=== PATIENT | female | born 1980 | race American Indian/Alaskan Native ===

== ENCOUNTER 2021-09-05 12:55 | Outpatient (CLI) | payer SELFPAY ==
[2021-09-05 14:34] LABS: Bacteria,Urine 2+ /HPF (Negative); Bilirubin,Urine NEG (Negative); Blood,Urine NEG (Negative); Color,Urine Straw (Yellow); Protein,Urine <15 mg/dL mg/dL (Negative); Urobilinogen,Urine < 2.0 mg/dL (<2.0)
[2021-09-05] MEDS ORDERED: LACTATED RINGERS 1,000 ML IV ONE (15:00)
[2021-09-05] MEDS ORDERED: TERBUTALINE 1 MG/1 ML INJ ONE (17:25)
[2021-09-05 17:58] VITALS: BP 129/76
[2021-09-05] MEDS ORDERED: TERBUTALINE 1 MG/1 ML INJ SUB-Q ONE (18:22)
--- NOTE | 2021-09-05 18:23 | Ultrasound Report ---
ULTRASOUND OBSTETRIC INDICATION / CLINICAL INFORMATION: limited care. TECHNIQUE: Transabdominal. COMPARISON: None available. FINDINGS: There is a single intrauterine . Biparietal Diameter = 7.1 cm = 28.4 weeks.days Head Circumference = 25.9 cm = 28.1 weeks.days Abdominal Circumference = 24.6 cm = 28.6 weeks.days Femur Length = 5.6 cm = 29.3 weeks.days Average Ultrasound Age (AUA) = 28.5 weeks.days Heart Rate: 158 beats per minute. Estimated Weight in grams (if calculated): 1305 Estimated Weight Growth Percentile (if calculated): 5 Position: cephalic. Cervix: closed. Length in cm (if measured): Placenta: maternal right and free of the os. Amniotic Fluid Volume: normal Amniotic Fluid Index (ANNIE) in cm (if calculated): 9.9. Maternal Adnexa: No significant abnormality. IMPRESSION: 1. Single, living intrauterine with estimated sonographic age of 28.5 weeks.days 2. No significant sonographic abnormality. Signer Name: Clarence Baron MD Signed: 09/05/2021 6:18 PM Workstation Name: [id number]
== END 2021-09-05 19:00 | disposition home or self-care (01) ==
LOC: TRG 12:55 → APU 12:55 → TRG 19:00
PROVIDERS: ATTEND Obstetrics & Gynecology
DX: O26.892 Other specified pregnancy related conditions, second trimester (principal); R10.30 Lower abdominal pain, unspecified; Z3A.27 27 weeks gestation of pregnancy
CPT/HCPCS: 36415; 59025; 76816; 81001; 82731; 96360; 96361

== ENCOUNTER 2021-11-15 11:29 | Inpatient (IN) | payer SELFPAY ==
[2021-11-15] MEDS ORDERED: LACTATED RINGERS 1,000 ML ONE ×2 (14:03→21:52)
[2021-11-15 14:53] LABS: Hematocrit 38.5 % (30.3-42.9); Hemoglobin 12.4 gm/dl (10.1-14.3); Mean Corpuscular HGB Conc 32 % (30-34); Mean Corpuscular Volume 90 fl (79-97); Platelet Count 193 K/mm3 (140-440); Red Blood Count 4.28 M/mm3 (3.65-5.03); Red Cell Distribution Width 26.6 % (13.2-15.2)
[2021-11-15 15:26] LABS: Bacteria,Urine 2+ /HPF (Negative); Bilirubin,Urine NEG (Negative); Blood,Urine NEG (Negative); Color,Urine Yellow (Yellow); Protein,Urine <15 mg/dL mg/dL (Negative); Urobilinogen,Urine < 2.0 mg/dL (<2.0)
--- NOTE | 2021-11-15 18:37 | History and Physical Report ---
History of Present Illness Date of examination: 11/15/21 Date of admission: 11/15/21 Chief complaint: sent from [facility] for evaluation and was told she would deliver today History of present illness: at 39.0wks by LMP c/w U/S with care at [facility]. Pt c/o pain that is constant, denies leakage of fluid or vag bleed. Pt admits to movement. pt states that she had previous c/section in 2010 and then myomectomy in 2012 and both surgeries done in [place]. Past History Past Medical History: no pertinent history Past Surgical History: section, myomectomy Family/Genetic History: none Social history: no significant social history - Obstetrical History Expected Date of Delivery: 11/22/21 Actual Gestation: 39 Week(s) 0 Day(s) : 4 Hx # Term Pregnancies: 1 (c/s done due to fibroids, per pt report) Spontaneous Abortions: 2 Number of Living Children: 1 Medications and Allergies Allergies Allergy/AdvReac Type Severity Reaction Status Date / Time No Known Allergies Allergy Verified 09/05/21 14:13 Home Medications Medication Instructions Recorded Confirmed Last Taken Type Nitrofurantoin [place]/M-Cryst 100 mg PO Q12HR 7 Days #14 capsule 11/15/21 Unknown Rx [Macrobid CAP] Review of Systems All systems: negative (constant lower pelvic pain) - Vital Signs Vital signs: Vital Signs Pulse Pulse Ox 115 H 99 11/15/21 11:51 11/15/21 11:51 Temp Pulse Resp BP Pulse Ox 98.3 F 112 H 18 116/73 100 11/15/21 12:16 11/15/21 16:22 11/15/21 12:16 11/15/21 12:16 11/15/21 16:22 - Physical Exam Breasts: Positive: normal Cardiovascular: Regular rate Lungs: Positive: Normal air movement Abdomen: Positive: soft Uterus: Positive: enlarged (non-tender to fundus) - Obstetrical FHR: category 1 Uterine Contraction Monitor Mode: External Cervical Dilatation: 1 Cervical Effacement Percentage: 0 station: -3 Results Result Diagrams: 11/15/21 13:45 Abnormal lab results 11/15/21 Range/Units 13:45 RDW 26.6 H (13.2-15.2) % All other labs normal. Assessment and Plan IUP at 39.0wks with previous c/s then myomectomy and now having pain 1. admit for repeat section 2. Will proceed when OR is available 3. Continuous toco/FHR All questions encouraged and answered
[2021-11-15] MEDS ORDERED: LACTATED RINGERS 1,000 ML IV SCH (18:45)
--- NOTE | 2021-11-15 18:46 | Anesthesia Day of Surgery ---
Anesthesia Day of Surgery - Day of Surgery Patient Examined: Yes Patient H&P Reviewed: Yes Patient is NPO: Yes Beta Blockers: No Cardiac Clearance: No Pulmonary Clearance: No Wilmer's Test: N/A
--- NOTE | 2021-11-15 18:47 | Anesthesia Consultation ---
Anesthesia Consult and Med Hx Date of service: 11/15/21 - Airway Anesthetic Teeth Evaluation: Good ROM Head & Neck: Adequate Mental/Hyoid Distance: Adequate Mallampati Class: Class II Intubation Access Assessment: Probably Good - Pulmonary Exam CTA: Yes - Cardiac Exam Cardiac Exam: RRR - Pre-Operative Health Status ASA Pre-Surgery Classification: ASA2, Emergency Proposed Anesthetic Plan: Spinal Nerve Block: TAP - Pulmonary Hx Smoking: No Hx Asthma: No Hx Sleep Apnea: No - Cardiovascular System Hx Hypertension: No Hx Heart Attack/AMI: No Hx Angina: No - Central Nervous System Hx Seizures: No Hx Psychiatric Problems: No - Gastrointestinal Hx Gastroesophageal Reflux Disease: No - Endocrine Hx Renal Disease: No Hx Liver Disease: No Hx Insulin Dependent Diabetes: No Hx Non-Insulin Dependent Diabetes: No Hx Hypothyroidism: No Hx Hyperthyroidism: No - Hematic Hx Anemia: No Hx Sickle Cell Disease: No - Other Systems Hx Alcohol Use: No - Additional Comments Anesthesia Medical History Comments: previous c/s, myomectomy
[2021-11-15] MEDS ORDERED: KETOROLAC 30 MG/1 ML INJ ONE (18:50)
[2021-11-15] MEDS ORDERED: dexAMETHasone 20 MG/5 ML VIAL ONE (18:50)
[2021-11-15] MEDS ORDERED: BUPIVACAINE/PF (0.5%) 5 MG/1 ML 30 ML VIAL INFILTRATI ONE (18:50)
[2021-11-15] MEDS ORDERED: ONDANSETRON 4 MG/2 ML INJ ONE (18:50)
[2021-11-15] MEDS ORDERED: BICITRA ORAL LIQD 30ML PO ONE (19:00)
[2021-11-15] MEDS ORDERED: OXYTOCIN DRIP 30 UNITS/500 ML BAG IV SCH (19:00)
[2021-11-15] MEDS ORDERED: ceFAZolin/Water 2 GM/20 ML 2 GM/20 ML SYRINGE IV NR (19:00)
[2021-11-15] MEDS ORDERED: METOCLOPRAMIDE 10 MG/2 ML INJ IV ONE (19:00)
[2021-11-15] MEDS ORDERED: FAMOTIDINE 20 MG/2 ML INJ IV ONE (19:00)
[2021-11-15] MEDS ORDERED: fentaNYL 100 MCG/2 ML INJ IV ONE (20:05)
[2021-11-15] MEDS ORDERED: diphenhydrAMINE 50 MG/ML VIAL IV PRN (20:34)
[2021-11-15] MEDS ORDERED: ONDANSETRON 4 MG/2 ML INJ IV PRN (20:34)
[2021-11-15] MEDS ORDERED: LACTATED RINGERS 250 ML IV SOLN IV ONE (20:34)
[2021-11-15] MEDS ORDERED: NalbUPHINE 10 MG/1 ML INJ IV PRN (20:34)
[2021-11-15] MEDS ORDERED: ePHEDrine SULFATE 50 MG/1 ML INJ IV PRN (20:34)
[2021-11-15] MEDS ORDERED: NALOXONE 2 MG/2 ML INJ IV PRN (20:34)
--- NOTE | 2021-11-15 20:36 | Progress Note ---
Labor Epidural - Labor Epidural Start Time: 20:22 Stop Time: 20:30 Performed by:: MARIEL POOLE Procedure: Patient is requesting epidural for labor and pain. H&P, labs were reviewed. Patient IDed, H&P reviewed, all questions and concerns were answered, and consent was signed. Timeout was performed at bedside. Patient in sitting position. Sterile prep and drape was performed. 3ml of 1% lidocaine skin wheal at L[3]- L [4]. 17-gauge Tuohy epidural needle was advanced to loss of resistance with air technique 6cm. Negative CSF negative blood. Epidural catheter advanced to [12] centimeters. [negative] Aspiration [negative] test dose. Sterile dressing applied. Patient tolerated procedure.
[2021-11-15] MEDS ORDERED: TERBUTALINE 1 MG/1 ML INJ ONE (20:50)
[2021-11-15] MEDS ORDERED: WATER FOR IRRIG STERILE 1,500 ML BOTTLE IR ONE (21:00)
[2021-11-15] MEDS ORDERED: fentaNYL-BUPIV 2 MCG/ML-0.125% 200 MCG/100 ML BAG EPIDURAL SCH (21:00)
[2021-11-15] MEDS ORDERED: SODIUM CHLORIDE 0.9% IRR 1,500 ML BOTTLE IR ONE (21:00)
[2021-11-15] MEDS ORDERED: ceFAZolin/STERILE WATER 2 GM/20 ML SYRINGE IV ONE (21:02)
[2021-11-15] MEDS ORDERED: PHENYLEPHRINE/NS 1,000 MCG/10 ML SYRINGE (OR USE) IV ONE ×2 (21:19→22:06)
[2021-11-15] MEDS ORDERED: miSOPROStol 200 MCG TAB ONE ×2 (22:49)
[2021-11-15] MEDS ORDERED: miSOPROStol 200 MCG TAB VG ONE (22:58)
--- NOTE | 2021-11-15 23:18 | Event Note ---
Date: 11/15/21 pt with pain in triage and FHR category I. pelvic 9/100/-1 and pt pushing. Pt rushed to labor suite and repeat pelvic now 10/100/-1. Pt allowed to push but pt screaming in pain and not pushing effectively. pt offered epidural and same accepted and given. Nurse called me to the room following epidural with normal BP and FHR in the 60's. Brethine x1 dose given and consents obtained for emergent section and risks, benefits and alternatives already discussed while in triage. Dr. Velasco available and I asked him to assist. Ctx every 3mins. All questions encouraged and answered.
--- NOTE | 2021-11-15 23:41 | Procedure Note ---
OB Delivery Note - Delivery Date of Delivery: 11/15/21 Surgeon: CARLEE PAYAN Estimated blood loss: other (381cc) - Section Preop diagnosis: repeat , nonreassuring FHR tracing, other (h/o myomectomy and same still present and hematuria) Postop diagnosis: same (and multiple huge fibroids and minimal to absent lower right rectus muscle and hematuria) section procedure: repeat low transverse (and lysis of adhesions) Disposition: floor Complications: none Narrative: Date: 11/15/21 Surgeon: Carlee Payan MD Preop Dx: IUP at 39wks, H/O C/Section x1, H/O myomectomy, Leiomyoma, non- reassuring FHR at 10cm dilated/100/-1 station, hematuria Postop Dx: same and huge uterine fibroids Procedure : Repeat Low transverse section Anesthesia: Epidural Intake: 1250cc Output: 200cc EBL: 381cc After the risks, benefits and alternatives of procedure discussed, patient sign ed consents and was taken to the operating room. Pt was given epidural anesthesia. After same was adequate, patient was prepped and draped in the usual sterile fashion. Mark catheter in place and draining blood tinged urine. Pt was given prophylactic antibiotic per protocol and time out was done Pfannenstiel skin incision was made thru previous scar and taken sharply to the fascia and the incision extended using electrocautery. Superior edge of the fascia was grasped with maritza clamps and the rectus muscle using sharp dissection and also using electrocautery. Lower portion of the fascia also using electrocautery. Rectus muscle in the midline and of note the right side of rectus muscle was minimal laterally and absent centrally. The Peritoneal cavity entered sharply and dense adhesion noted to anterior serosa, thick back extending downwards. Same had to be and electrocautery used to separate same and the band extended to right side of a nterior abdominal wall and it was clear enough to allow placement of mic for delivery of baby. There was now good visualization of the bladder. The bladder flap was created sharply using metzenbaum scissors and bladder blade placed. Lower uterine segment then entered transversely and amniotic sac entered using allys clamps. Uterine incision extended using bandage scissors. Infant delivered vertex, bulb suctioned, cord clamped and baby handed to waiting pediatricians. Placenta then manually removed completely and uterine cavity cleared of all clots and debri. The uterus was not exteriorized and closed single layer using 0-monocryl suture in a running locked fashion and then an additional layer of imbrication suture at the area that was superior which was previously from the anterior wall. Surgicel powder placed and good hemostasis noted. The gutters and adnexa not visible due to extensive adhesions bilaterally. Uterine peritoneum on the left closed with 3-0 running suture with excellent hemostasis. Anterior peritoneum and rectus muscle on the left closed using 0- monocryl. Hemostasis remained good. Rectus fascia closed with 0-vicryl suture in a continous fashion from left side towards the right and subcutaneous tissue copiously irrigated with normal saline and re-approximated using 3-0 vicry suture in 2 layers. Excellent hemostasis achieved. The skin was closed with 4-0 monocryl suture in a subcutaneous fashion and steristrips placed with pressure dressing. Sponge, lap, instrument and needle counts x3 were normal. Patient tolerated the procedure well and was taken to recovery room stable. Findings: Viable male infant, APGARS 8/9 and weight 3080g. Irregularly shaped uterus with multiple large fibroids, minimal to absent right rectus muscle. Neither right or left tubes and ovaries visualized. Pathology: placenta - Infant A at 1 minute: 8 at 5 minutes: 9 Infant Gender: Male (wt 3080g; meconium stained fluid)
[2021-11-16] MEDS ORDERED: SENNOSIDES 8.6 MG TAB PO PRN (00:54)
[2021-11-16] MEDS ORDERED: LANOLIN/ZINC/DIMETHICONE (LANSINOH) 7 GM TP PRN (00:54)
[2021-11-16] MEDS ORDERED: MORPHINE 4 MG/1 ML INJ IV PRN (00:54)
[2021-11-16] MEDS ORDERED: PROMETHAZINE 25 MG RECT SUPP PR PRN (00:54)
[2021-11-16] MEDS ORDERED: IBUPROFEN 800 MG TAB PO PRN (00:54)
[2021-11-16] MEDS ORDERED: ACETAMINOPHEN 325 MG TAB PO PRN (00:54)
[2021-11-16] MEDS ORDERED: SIMETHICONE 80 MG CHEW TAB PO PRN (00:54)
[2021-11-16] MEDS ORDERED: MAGNESIUM HYDROXIDE (MOM) ORAL LIQD UDC PO PRN (00:54)
[2021-11-16] MEDS ORDERED: WITCH HAZEL/ GLYCERIN PAD TP PRN (00:54)
[2021-11-16] MEDS ORDERED: NALOXONE 0.4 MG/1 ML INJ IV PRN (00:54)
[2021-11-16] MEDS ORDERED: OXYTOCIN DRIP 30 UNITS/500 ML BAG IV SCH (00:54)
[2021-11-16] MEDS: KETOROLAC 30 MG/1 ML INJ IV PRN ×2 (09:48→17:07)
[2021-11-16] MEDS: FERROUS SULFATE 325 MG TAB PO SCH (09:48)
[2021-11-16] MEDS: PRENATAL VIT27-FE FUMARATE-FOLIC ACID VIT TAB PO SCH (09:48)
--- NOTE | 2021-11-16 11:57 | Progress Note ---
Assessment and Plan POD# 1 C/Section with large uterine fibroids and hematuria that has now resolved 1. Will remove the werner cath after 24hrs 2. Routine post op care and advance to regular diet as tolerated Subjective Date of service: 11/16/21 Principal diagnosis: POD#1 C/Section Interval history: pt has passed flatus and tolerated clears diet. Werner cath continues to give copious amount of clear urine. Pain controlled with meds. Denies n/V/F/C Objective - Constitutional Vitals: Vital Signs - 12hr 11/15/21 11/16/21 11/16/21 23:55 00:15 00:33 Temperature 97.9 F Pulse Rate 96 H 109 H Respiratory 16 20 Rate Blood Pressure 130/84 138/81 Blood Pressure [Right] O2 Sat by Pulse 100 100 Oximetry O2 Sat by Pulse Oximetry [ Anterior Bilateral Throughout] 11/16/21 11/16/21 11/16/21 01:15 06:37 07:44 Temperature 98.2 F 97.9 F 98.3 F Pulse Rate 120 H 111 H 112 H Respiratory 20 18 24 Rate Blood Pressure 118/76 120/79 Blood Pressure 113/70 [Right] O2 Sat by Pulse 99 99 100 Oximetry O2 Sat by Pulse 100 Oximetry [ Anterior Bilateral Throughout] 11/16/21 09:48 Temperature Pulse Rate Respiratory 16 Rate Blood Pressure Blood Pressure [Right] O2 Sat by Pulse Oximetry O2 Sat by Pulse Oximetry [ Anterior Bilateral Throughout] General appearance: Present: no acute distress - Respiratory Respiratory effort: normal - Breasts Breasts: deferred - Cardiovascular Rhythm: regular Extremities: No edema - Gastrointestinal General gastrointestinal: Present: soft, non-tender, other (Dressing C/D/I; Lochia scant) - Integumentary Integumentary: warm, dry - Neurologic Neurologic: moves all extremities - Psychiatric Psychiatric: cooperative - Labs CBC & Chem 7: 11/15/21 13:45 Labs: Abnormal lab results 11/15/21 Range/Units 13:45 RDW 26.6 H (13.2-15.2) % Medications & Allergies - Medications Allergies/Adverse Reactions: Allergies No Known Allergies Allergy (Verified 09/05/21 14:13) Home Medications: Home Medications Medication Instructions Recorded Confirmed Last Taken Type Ibuprofen [Motrin] 800 mg PO Q8HR PRN 21 Days #40 11/15/21 Unknown Rx tablet Nitrofurantoin [place]/M-Cryst 100 mg PO Q12HR 7 Days #14 capsule 11/15/21 Unknown Rx [Macrobid CAP] oxyCODONE /ACETAMINOPHEN [Percocet 1 tab PO Q4HR PRN 21 Days #30 tab 11/15/21 Unknown Rx 5/325] Active Medications: Generic Name Dose Route Start Last Admin Trade Name Freq PRN Reason Stop Dose Admin Acetaminophen 650 mg 11/16/21 00:54 Acetaminophen 325 Mg Tab PO Q4H PRN Fever >100.5/WATSON Diphenhydramine HCl 12.5 mg 11/15/21 20:34 Diphenhydramine 50 Mg/Ml Vial IV Q2H PRN Itching Ferrous Sulfate 325 mg 11/16/21 10:00 11/16/21 09:48 Ferrous Sulfate 325 Mg Tab PO 325 mg QDAY MAGI Administration Lactated Ringer's 1,000 mls @ 2,250 mls/hr 11/15/21 18:45 11/16/21 01:45 Lactated Ringers IV 11/16/21 19:12 125 mls/hr PREOP MAGI Administration Cefazolin Sodium 2 gm/ Sodium 100 mls @ 200 mls/hr 11/16/21 05:00 11/16/21 05:00 Chloride IV 11/16/21 21:29 200 mls/hr Q8H MAGI Administration Protocol Oxytocin/Sodium Chloride 30 units in 500 mls @ 40 mls/hr 11/16/21 00:54 Pitocin/Ns 30 Unit/500ml IV TITR MAGI Protocol Ibuprofen 800 mg 11/16/21 00:54 Ibuprofen 800 Mg Tab PO Q6H PRN Pain, Moderate (4-6) Ketorolac Tromethamine 15 mg 11/16/21 00:54 11/16/21 09:48 Ketorolac 30 Mg/1 Ml Inj IV 15 mg Q6H PRN Administration Pain, Mild (1-3) Magnesium Hydroxide 30 ml 11/16/21 00:54 Magnesium Hydroxide (Mom) Oral Liqd Udc PO QHS PRN Constip Unrelieved By Senna Morphine Sulfate 4 mg 11/16/21 00:54 Morphine 4 Mg/1 Ml Inj IV Q4H PRN Pain , Severe (7-10) Multi-Ingredient Ointment 1 applic 11/16/21 00:54 Lanolin/Zinc/Dimethicone (Lansinoh) 7 Gm TP PRN PRN dryness/cracking Multivitamins/Iron/Calcium 1 each 11/16/21 10:00 11/16/21 09:48 Iem78-Tp Fumarate-Folic Acid Vit Tab PO 1 each QDAY MAGI Administration Naloxone HCl 0.1 mg 11/16/21 00:54 Naloxone 0.4 Mg/1 Ml Inj IV Q2MIN PRN Res Rate </= 8 or 02 SAT < 92% Ondansetron HCl 4 mg 11/15/21 20:34 Ondansetron 4 Mg/2 Ml Inj IV Q8H PRN Nausea And Vomiting Oxycodone/Acetaminophen 2 tab 11/16/21 00:54 Oxycodone /Acetaminophen 5-325mg Tab PO Q6H PRN Pain, Moderate (4-6) Promethazine HCl 25 mg 11/16/21 00:54 Promethazine 25 Mg Rect Supp MD Q6H PRN N/V IF NPO AND NO IV ACCESS Senna 17.2 mg 11/16/21 00:54 Sennosides 8.6 Mg Tab PO QHS PRN Constipation Simethicone 80 mg 11/16/21 00:54 Simethicone 80 Mg Chew Tab PO Q6H PRN Gas pain Sodium Chloride 10 ml 11/16/21 00:54 Sodium Chloride 0.9% 10 Ml Flush Syringe IV PRN PRN LINE FLUSH Witch [place]/Glycerin 1 each 11/16/21 00:54 Witch [place]/ Glycerin Pad TP PRN PRN Hemorrhoids/cleansing/soothing
--- NOTE | 2021-11-16 15:31 | Post Anesthesia Evaluation ---
- Post Anesthesia Evaluation Patient Participated: Yes Airway Patent: Yes Stable Respiratory Function: Yes Nausea/Vomiting: No Temp > 96.8F: Yes Pain Manageable: Yes Adequeate Hydration: Yes Anesthesia Complications: No Block Receding Appropriately: Yes Patient on Ventilator: No
[2021-11-16 16:41] LABS: Hematocrit 32.3 % (30.3-42.9); Hemoglobin 10.4 gm/dl (10.1-14.3)
[2021-11-17] MEDS: oxyCODONE /ACETAMINOPHEN 5-325MG TAB PO PRN ×3 (07:23→21:04)
[2021-11-17] MEDS: PRENATAL VIT27-FE FUMARATE-FOLIC ACID VIT TAB PO SCH (10:15)
[2021-11-17] MEDS: FERROUS SULFATE 325 MG TAB PO SCH (10:15)
--- NOTE | 2021-11-17 11:07 | Progress Note ---
Assessment and Plan A: /postop day 2 S/P repeat LTCS with lysis of adhesions. Tachycardia. Anemia. P: CBC, CMP, urine culture. EKG, chest x-ray. Requested RN to recheck full set of VS and call provider. Patient to drink warm liquids today. Consulted with Dr. Gaxiola re: this patient. Subjective - Subjective Date of service: 11/17/21 Principal diagnosis: /postop day 2 S/P repeat LTCS Interval history: Patient has tachycardia. Patient denies headache, dizziness, weakness, fatigue, chest pain, shortness of breath, leg pain, fever or chills, or heavy vaginal bleeding. Voiding without difficulty. Tolerating clear liquid diet. Has not passed gas yet. Reports moderate amount of lochia with no clots; changing marita pad every 3-4 hours. Patient reports: appetite normal, voiding normally, pain well controlled, no dizzy ambulation, no flatus, no bowel movement, no nauseated Objective - Vital Signs Latest vital signs: Vital Signs Temp Pulse Resp BP BP Pulse Ox Pulse Ox 11/17/21 07:42 98.0 F 131 H 28 H 131/90 100 11/17/21 07:23 16 11/17/21 01:40 98.7 F 114 H 18 123/68 100 11/16/21 21:50 99 11/16/21 21:25 99.0 F 110 H 18 124/61 99 11/16/21 17:07 16 11/16/21 15:35 98.2 F 111 H 20 123/77 100 11/16/21 11:25 97.8 F 113 H 20 112/74 99 Intake and Output 11/16/21 11/17/21 11/17/21 23:59 07:59 15:59 Intake Total 480 120 120 Output Total 1150 Balance -670 120 120 Intake: Oral 480 120 120 Output: Urine 1150 Indwelling Catheter 900 Void 250 Other: Total, Intake Amount 120 120 120 Total, Output Amount 250 # Voids Void 1 1 - Exam Cardiovascular: Present: Regular rate, No murmurs, Other (tachycardia) Lungs: Present: Clear to auscultation Abdomen: Present: normal appearance, soft, normal bowel sounds. Absent: tenderness, guarding, rigidity Uterus: Present: normal, firm, fundal height below umbilicus (fundus firm at 1 FB below umbilicus). Absent: bogginess, tenderness Extremities: Absent: tenderness Incision: Present: dry, dressed
--- NOTE | 2021-11-17 12:05 | XRay Report ---
CHEST 1 VIEW 11/17/2021 11:46 AM INDICATION / CLINICAL INFORMATION: tachycardia. COMPARISON: None available. FINDINGS: SUPPORT DEVICES: None. HEART / MEDIASTINUM: No significant abnormality. LUNGS / PLEURA: Suboptimal inspiratory effort No significant pulmonary or pleural abnormality. No pne umothorax. ADDITIONAL FINDINGS: No significant additional findings. IMPRESSION: 1. No acute findings. Signer Name: Gianni Chandler MD Signed: 11/17/2021 12:01 PM Workstation Name: [id number]
[2021-11-17 15:48] LABS: Hematocrit 32.1 % (30.3-42.9); Hemoglobin 10.1 gm/dl (10.1-14.3); Mean Corpuscular HGB Conc 32 % (30-34); Mean Corpuscular Volume 89 fl (79-97); Platelet Count 212 K/mm3 (140-440); Red Blood Count 3.61 M/mm3 (3.65-5.03)
[2021-11-17 15:50] LABS: Red Cell Distribution Width 26.9 % (13.2-15.2)
[2021-11-17 15:57] LABS: Alanine Aminotransferase 13 units/L (7-56); Albumin 3.1 g/dL (3.9-5); Blood Urea Nitrogen 9 mg/dL (7-17); Calcium 9.4 mg/dL (8.4-10.2); Hemolysis Index 28
[2021-11-17 16:06] LABS: BUN/Creatinine Ratio 15
[2021-11-17 17:01] LABS: Total Cells Counted 100
[2021-11-17 17:02] LABS: Anisocytosis 2+; Platelet Estimate Consistent w Auto; Poikilocytosis 1+
[2021-11-17 17:03] LABS: Giant Platelets Rare; Hypochromasia 1+; Ovalocytes Few
[2021-11-17 17:04] LABS: Spherocytes Few
--- NOTE | 2021-11-17 23:37 | Cat Scan Report ---
CT CHEST WITH CONTRAST INDICATION / CLINICAL INFORMATION: tachycardia, tachypnea, postop. TECHNIQUE: Axial CT images were obtained through the chest after 100 cc of Omnipaque [address] scans at this location are performed using CT dose reduction for ALARA by means of automated exposure control. COMPARISON: None available. FINDINGS: HEART: No significant abnormality. CORONARY ARTERY CALCIFICATION: None. THORACIC AORTA: No significant abnormality. MEDIASTINUM / JANUSZ: No significant abnormality. PLEURA: No pleural effusion. No pneumothorax. LUNGS: Platelike consolidation in the bilateral, right greater than left lung bases. ADDITIONAL FINDINGS: None. UPPER ABDOMEN: There is dilation of multiple loops of bowel within the abdomen, likely postoperative ileus. There is also a small amount of intraperitoneal air, given the history likely postsurgical. SKELETAL SYSTEM: No significant abnormality. IMPRESSION: 1. Platelike consolidation in the bilateral, right greater than left lung bases. This may represent s ubsegmental atelectasis; however, aspiration should also be considered in the appropriate clinical se tting. 2. Dilated loops of bowel within the abdomen, likely postoperative ileus. There is also small amount intraperitoneal air, likely postsurgical given the provided history. Signer Name: Jeremy Massey DO Signed: 11/17/2021 11:32 PM Workstation Name: [email or web address]
[2021-11-18] MEDS: oxyCODONE /ACETAMINOPHEN 5-325MG TAB PO PRN (03:46)
--- NOTE | 2021-11-18 09:33 | Progress Note ---
Subjective - Subjective Date of service: 11/18/21 Principal diagnosis: /postop day 3 S/P repeat LTCS Interval history: persistent tachycardia(PNR reviewed, baseline HR 120-140) Will w/up as outpatient no acute distress meets dc criteria fup one week Gumaro Gaxiola MD Patient reports: appetite normal, voiding normally, pain well controlled, ambulating normally : doing well Objective - Vital Signs Latest vital signs: Vital Signs Temp Pulse Resp BP Pulse Ox Pulse Ox 11/18/21 03:46 18 11/18/21 01:35 98.3 F 120 H 20 147/94 100 11/17/21 21:04 18 11/17/21 19:50 99 11/17/21 16:48 98.3 F 124 H 20 143/87 100 11/17/21 12:12 98.3 F 125 H 24 148/95 100 Intake and Output 11/17/21 11/18/21 11/18/21 23:59 07:59 15:59 Intake Total 240 240 Balance 240 240 Intake: Oral 240 240 Other: Total, Intake Amount 120 120 # Voids Void 1 1 - Labs Labs: Abnormal lab results 11/17/21 11/17/21 Range/Units 15:07 15:07 WBC 12.8 H (4.5-11.0) K/mm3 RBC 3.61 L (3.65-5.03) M/mm3 RDW 26.9 H (13.2-15.2) % Seg Neuts % (Manual) 82.0 H (40.0-70.0) % Lymphocytes % (Manual) 9.0 L (13.4-35.0) % Monocytes % (Manual) 8.0 H (0.0-7.3) % Seg Neutrophils # Man 10.5 H (1.8-7.7) K/mm3 Monocytes # (Manual) 1.0 H (0.0-0.8) K/mm3 Carbon Dioxide 19 L (22-30) mmol/L Glucose 118 H (65-100) mg/dL Total Protein 6.2 L (6.3-8.2) g/dL Albumin 3.1 L (3.9-5) g/dL
--- NOTE | 2021-11-18 09:34 | Discharge Summary ---
Providers - Providers Date of Admission: 11/15/21 21:59 Date of discharge: 11/18/21 Attending physician: HYUN PAYAN Primary care physician: HYUN PAYAN Hospitalization Incision: normal, dry, intact Discharge diagnosis: IUP at term delivered Condition at discharge: Stable Disposition: 01 HOME / SELF CARE / HOMELESS Plan - Discharge Medications Prescriptions: Nitrofurantoin [place]/M-Cryst [Macrobid CAP] 100 mg PO Q12HR 7 Days #14 capsule Ibuprofen [Motrin] 800 mg PO Q8HR PRN 21 Days #40 tablet PRN Reason: Pain, Moderate (4-6) oxyCODONE /ACETAMINOPHEN [Percocet 5/325] 1 tab PO Q4HR PRN 21 Days #30 tab PRN Reason: Pain , Severe (7-10) - Provider Discharge Summary Activity: no sex for 6 weeks Additional instructions: [] Smoking cessation referral if applicable(refer to patient education folder for contact #) [] Refer to [facility] Booklet Call your doctor immediately for: * Fever > 100.5 * Heavy vaginal bleeding ( >1 pad per hour) * Severe persistent headache * Shortness of breath * Reddened, hot, painful area to leg or breast * Drainage or odor from incision. * Keep incision clean and dry at all times and follow doctor's instructions regarding bathing/showering - Follow up plan Follow up: HYUN PAYAN MD [Primary Care Provider] - 7 Days Forms: [facility] Discharge Summary
[2021-11-18 19:42] VITALS: BP 133/83
--- NOTE | 2021-11-20 10:39 | Electrocardiograph Report ---
[facility] Test Date: 2021-11-17 Test Time: 11:49:11 Pat Name: LEONIDES HYLTON Department: Room: [facility] 1 Gender: F Field Service Consultant: MITRA : 1980 Requested By: CRYSTAL ROBLEDO Order Number: [id number] Reading MD: Charissa German Measurements Intervals [place] Rate: 127 P: 48 SC: 128 QRS: 3 QRSD: 72 T: 25 QT: 290 QTc: 422 Interpretive Statements Sinus tachycardia No previous ECG available for comparison Electronically Signed On 11-20-2021 10:39:21 EST by Charissa German
== END 2021-11-18 18:40 | disposition home or self-care (01) | DRG 787 ==
LOC: TRG 11:29 → APU 11:30 → LD 20:00 → TRG 21:57 → LD 21:59 → OB 11-16 00:53
PROVIDERS: ADMIT Obstetrics & Gynecology; ATTEND Obstetrics & Gynecology
PROC: 10D00Z1 Extraction of Products of Conception, Low, Open Approach (ICD-10-PCS; principal; 2021-11-15)
DX: O34.211 Maternal care for low transverse scar from previous cesarean delivery (principal); O99.43 Diseases of the circulatory system complicating the puerperium; O76 Abnormality in fetal heart rate and rhythm complicating labor and delivery; Z20.822 Contact with and (suspected) exposure to COVID-19; Z3A.39 39 weeks gestation of pregnancy; Z37.0 Single live birth; O90.81 Anemia of the puerperium
CPT/HCPCS: 36415; 59025; 71045; 71260; 80053; 81001; 85007; 85014; 85018; 85025; 85027; 86850; 86900; 86901; 87086; 88307; 93005; 96360; G0378; J3490; J7121; C1765; J0690; J1100; J1885; J2370; J2405; J3010; J3105; J7120; Q9967; U0003